=== PATIENT | female | born 1955 | race Caucasian/White ===

== ENCOUNTER → 2016-05-27 | Outpatient (CLI) | payer OTHER ==
[~2016-05-27] MED LIST: FLUT9.9S NS; IBUP200C8 PO; LORA10TA75 PO; LOTE5DRO3 EACHEYE; MAGN400T7 PO; NAPH30DR2 EACHEYE; OMEP20TA62 PO; POLY1530 PO; PROG100C4 PO; SENN8.6T4 PO; THYR60TA PO; [UNRECOGNIZED DRUG - OTHER] PO
== END | disposition home or self-care (01) ==
LOC: RAD 12:25
PROVIDERS: ATTEND Family Medicine
DX: M43.17 Spondylolisthesis, lumbosacral region (principal); M54.5 Low back pain
CPT/HCPCS: 72110

== ENCOUNTER → 2016-06-03 | Outpatient (CLI) | payer OTHER | END | disposition home or self-care (01) | LOC: CFH 13:05 | PROVIDERS: ATTEND Family Medicine | DX: M47.897 Other spondylosis, lumbosacral region (principal); M12.88 Other specific arthropathies, not elsewhere classified, other specified site; M71.38 Other bursal cyst, other site; M47.896 Other spondylosis, lumbar region | CPT/HCPCS: 72148 ==

== ENCOUNTER → 2016-10-21 | Outpatient (CLI) | payer OTHER | END | disposition home or self-care (01) | LOC: LAB 10:15 | PROVIDERS: ATTEND Obstetrics & Gynecology | DX: E03.8 Other specified hypothyroidism (principal) | CPT/HCPCS: 36415; 84439; 84443; 84481 ==

== ENCOUNTER → 2016-10-25 | Outpatient (CLI) | payer OTHER | END | disposition home or self-care (01) | LOC: CFH 13:56 | PROVIDERS: ATTEND Obstetrics & Gynecology | DX: N63 Unspecified lump in breast (principal); N64.4 Mastodynia | CPT/HCPCS: 76642; G0204 ==

== ENCOUNTER → 2018-02-18 | Outpatient (CLI) | payer OTHER ==
[~2018-02-18] MED LIST changes: +PROG100C16 PO; -PROG100C4 PO; +SENN-88 PO; -SENN8.6T4 PO
== END | disposition home or self-care (01) ==
LOC: CFH 11:08
PROVIDERS: ATTEND Obstetrics & Gynecology
DX: Z12.31 Encounter for screening mammogram for malignant neoplasm of breast (principal)
CPT/HCPCS: 77067

== ENCOUNTER 2019-07-02 11:01 | Emergency (ER) | payer OTHER ==
[~2019-07-02] VITALS: Ht 152.4 cm; Wt 67.3 kg
[~2019-07-02 11:01] MED LIST changes: -MAGN400T7 PO; +MAGN400T9 PO
--- NOTE | 2019-07-02 11:22 | NUR ---
ASSUMED CARE OF PT AT THIS TIME FROM LOBBY VIA WHEELCHAIR. PT ABLE TO STAND AND TRASNFER SELF TO NHAN WITH ASSISTANCE FROM SPOUSE. 64 Y/O F PRSENTS STATING "FELL AND TRIPPED OVER A POT WHILE GARDENING. HAVING INTENSE LOW BACK PAIN ON BOTH THE RIGHT AND LEFT SIDE, I HAVE SOME HERNIATED DISCS AND FACET JOINT ARTHRITIS BUT THIS IS NEW. I TOOK 1500MG OF TYLENOL AROUND 10 AM AND IT HELPED SOME BUT SEEMS WORSE NOW." RATES PAIN 7-8/10 LOW BACK. DENIES HITTING HEAD OR ANY LOC WITH FALL. CMS AND NEURO INTACT. A&OX4. ASSESSMENT COMPLETED. CONT PULSE OX, BP MONITORS APPLIED. VSS. SPOUSE AT BEDSIDE. DENIES MORE, CP, SOB, N/V/D, FEVERS, CHILLS, COUGH, N/T, DIZZINESS. EUNICE SHERWOOD AT BEDSIDE FOR EVALUATION, AWAITING ORDERS. CALL LIGHT IN REACH. FALL PRECAUTIONS IN PLACE.
[2019-07-02 11:26] VITALS: BP 134/72
--- NOTE | 2019-07-02 11:50 | NUR ---
PT IN RAD
--- NOTE | 2019-07-02 12:18 | NUR ---
PT BACK CT, NAD NOTED. VSS. SPOUSE AT BEDSIDE. AWAITING RECHECK
--- NOTE | 2019-07-02 12:29 | NUR ---
EUNICE SHERWOOD AT BEDSIDE FOR RECHECK. AWAITING CHART AND DISCHARGE PAPERS FROM ERP
== END 2019-07-02 12:41 | disposition home or self-care (01) ==
LOC: ED 12:40
DX: S32.019A Unspecified fracture of first lumbar vertebra, initial encounter for closed fracture (principal); W01.0XXA Fall on same level from slipping, tripping and stumbling without subsequent striking against object, initial encounter; Y93.89 Activity, other specified; Y92.89 Other specified places as the place of occurrence of the external cause; Y99.8 Other external cause status
CPT/HCPCS: 72110; 99284

== ENCOUNTER 2019-08-18 08:24 | Emergency (ER) | payer OTHER ==
[~2019-08-18] VITALS: Ht 152.4 cm; Wt 66.4 kg
[~2019-08-18 08:24] MED LIST changes: +SENN-190 PO; -SENN-88 PO
[2019-08-18] MEDS ORDERED: DIPH,PERTUSS(ACELL),TET VAC/PF 0.5 ML IM-VACC ONE ×2 (09:00→09:13)
--- NOTE | 2019-08-18 09:20 | NUR ---
OFF FLOOR TO XRAY
[2019-08-18 10:04] VITALS: BP 126/69
--- NOTE | 2019-08-18 10:20 | NUR ---
TECH AT BEDSIDE APPLYING SPLINT LEFT FOREARM
--- NOTE | 2019-08-18 10:38 | NUR ---
GOOD DISTAL CMS AFTER SPLINT PLACED BY TECH. PROVIDED SLING AND ORTHO TEACHING PROVIDED. AMBULATED TO DISCHARGE WINDOW STEADY GAIT.
== END 2019-08-18 10:40 | disposition home or self-care (01) ==
LOC: ED 09:53
DX: S52.502A Unspecified fracture of the lower end of left radius, initial encounter for closed fracture (principal); S01.01XA Laceration without foreign body of scalp, initial encounter; W01.0XXA Fall on same level from slipping, tripping and stumbling without subsequent striking against object, initial encounter; Y93.89 Activity, other specified; Y92.098 Other place in other non-institutional residence as the place of occurrence of the external cause; Y99.8 Other external cause status
CPT/HCPCS: 12001; 29125; 70450; 90471; 90715; 99284

== ENCOUNTER 2019-12-30 12:30 | Day surgery (SDC) | payer OTHER ==
[~2019-12-30] VITALS: Ht 152.4 cm; Wt 64.6 kg
[~2019-12-30 12:30] MED LIST changes: +CHOL10003 PO; +[UNRECOGNIZED DRUG - CODE] TP; +[UNRECOGNIZED DRUG - OTHER] PO
[2019-12-30 13:08] VITALS: BP 139/85
[2019-12-30] MEDS ORDERED: LIDOCAINE-MPF 1%, 2ML INFIL ONE (13:30)
[2019-12-30] MEDS ORDERED: CHLORHEXIDINE 15 ML UDC MM ONE (13:30)
[2019-12-30] MEDS ORDERED: LACTATED RINGERS 1,000 ML IV SCH (13:30)
[2019-12-30] MEDS ORDERED: FENTANYL PF 100 MCG/2ML ONE (14:09)
[2019-12-30] MEDS ORDERED: KETOROLAC 30 MG/1 ML ONE (14:24)
[2019-12-30] MEDS ORDERED: methylPREDNISolone *ACETATE* 40 MG/ML ONE (14:25)
[2019-12-30] MEDS ORDERED: BUPIVACAINE/PF 0.5% ONE (14:25)
[2019-12-30] MEDS ORDERED: hydrALAzine 20 MG/ML, 1ML IV PRN (15:00)
[2019-12-30] MEDS ORDERED: MEPERIDINE/PF 25MG/0.5ML IVPush PRN (15:00)
[2019-12-30] MEDS ORDERED: HALOPERIDOL 5 MG/ML IV PRN (15:00)
[2019-12-30] MEDS ORDERED: FENTANYL PF 100 MCG/2ML IV PRN (15:00)
[2019-12-30] MEDS ORDERED: DIPHENHYDRAMINE 50 MG/ML, 1ML IVPush PRN (15:00)
[2019-12-30] MEDS ORDERED: PROMETHAZINE 25 MG/ML, 1ML IVPush PRN (15:00)
[2019-12-30] MEDS ORDERED: HYDROmorphone 1 MG/ML, 1ML INJ IVPush PRN (15:00)
[2019-12-30] MEDS ORDERED: LABETALOL 5MG/ML, 20ML IV PRN (15:00)
[2019-12-30] MEDS ORDERED: HYDROcodone/APAP 7.5-325MG/15ML UDC PO PRN (15:00)
[2019-12-30] MEDS ORDERED: LIDOCAINE/PF 1%-EPI 1:200K, 30 ML ONE (15:08)
[2019-12-30] MEDS ORDERED: MIDAZOLAM 1 MG/ML, 2ML ONE (15:11)
[2019-12-30] MEDS ORDERED: PROPOFOL 50 ML ONE (15:21)
== END 2019-12-30 16:55 | disposition home or self-care (01) ==
LOC: OUT 12:30
PROVIDERS: ATTEND Orthopaedic Surgery Hand Surgery
DX: G56.02 Carpal tunnel syndrome, left upper limb (principal); Z20.828 Contact with and (suspected) exposure to other viral communicable diseases; K21.9 Gastro-esophageal reflux disease without esophagitis; Z79.899 Other long term (current) drug therapy; Z87.891 Personal history of nicotine dependence; Z91.048 Other nonmedicinal substance allergy status
CPT/HCPCS: 29848; 36415; 87635; 93005; J2250; J2704; J3010; J7120; J1885; J1030